=== PATIENT | male | born 1935 | race Caucasian/White ===

== ENCOUNTER → 2017-01-15 | Outpatient (CLI) | payer MEDICARE | END | disposition home or self-care (01) | LOC: PETCFH 09:27 | PROVIDERS: ATTEND Specialist | DX: C79.51 Secondary malignant neoplasm of bone (principal); C61 Malignant neoplasm of prostate | CPT/HCPCS: 78306; A9503 ==

== ENCOUNTER → 2017-05-07 | Outpatient (CLI) | payer MEDICARE | END | disposition home or self-care (01) | LOC: PETCFH 08:08 | PROVIDERS: ATTEND Specialist | DX: C61 Malignant neoplasm of prostate (principal) | CPT/HCPCS: 78306; A9503 ==

== ENCOUNTER → 2017-05-07 | Outpatient (CLI) | payer MEDICARE | END | disposition home or self-care (01) | LOC: CFH 08:10 | PROVIDERS: ATTEND Specialist | DX: C79.51 Secondary malignant neoplasm of bone (principal); C61 Malignant neoplasm of prostate; M25.78 Osteophyte, vertebrae; M48.061 Spinal stenosis, lumbar region without neurogenic claudication | CPT/HCPCS: 72158 ==

== ENCOUNTER 2018-03-30 06:09 | Inpatient (IN) | payer MEDICARE ==
[~2018-03-30] VITALS: Ht 175.3 cm; Wt 79.5 kg
[2018-03-30] VITALS (9 sets, daily range): BP systolic 113–156; BP diastolic 63–79
[2018-03-30 06:57] LABS: BASOPHILS # (AUTO) 0.01 x10^3/uL (0-0.1); BASOPHILS % (AUTO) 0 % (0-1); EOSINOPHILS # (AUTO) 0.11 x10^3/uL (0-0.4); EOSINOPHILS % (AUTO) 1 % (1-7); LYMPHOCYTES # (AUTO) 1.97 x10^3/uL (1-3.4); LYMPHOCYTES % (AUTO) 17 % (22-44); MD NO; MEAN CORPUSCULAR HEMOGLOBIN 32.9 pg (27.5-34.5); MONOCYTES # (AUTO) 1.19 x10^3/uL (0.2-0.8); MONOCYTES % (AUTO) 10 % (2-9); NEUTROPHILS # (AUTO) 8.45 x10^3/uL (1.8-6.8); NEUTROPHILS % (AUTO) 72 % (42-75); PLATELET COUNT 170 x10^3/uL (130-400); RED BLOOD COUNT 4.52 x10^6/uL (4.38-5.82); RED CELL DISTRIBUTION WIDTH 13.6 % (9.4-14.8)
[2018-03-30 07:06] LABS: INTERNATIONAL NORMALIZED RATIO 1.07 (0.93-1.1); PROTHROMBIN TIME 11.1 Seconds (9.6-11.5)
[2018-03-30 07:08] LABS: ALANINE AMINOTRANSFERASE 24 U/L (12-78); ALBUMIN 3.5 g/dL (3.4-5.0); ANION GAP 8 mmol/L (5-15); CALCIUM 8.9 mg/dL (8.5-10.1); CHLORIDE 106 mmol/L (98-107); CREATININE 1.02 mg/dL (0.7-1.3)
[2018-03-30 07:10] LABS: ALKALINE PHOSPHATASE 246 U/L (45-117); BILIRUBIN,TOTAL 0.7 mg/dL (0.2-1.0); TOTAL PROTEIN 6.8 g/dL (6.4-8.2)
[2018-03-30 07:12] LABS: TROPONIN I < 0.015 ng/mL (0.000-0.045)
[2018-03-30] MEDS ORDERED: ATOR-2 PO (07:24)
[2018-03-30] MEDS ORDERED: CLOP75TA PO (07:24)
[2018-03-30] MEDS ORDERED: METO-99 PO (07:24)
[2018-03-30] MEDS ORDERED: DABI75CA3 PO (07:24)
[2018-03-30] MEDS ORDERED: AMLO10TA6 PO (07:24)
[2018-03-30] MEDS ORDERED: LOSA100T7 PO (07:24)
[2018-03-30] MEDS ORDERED: PINK LADY ENEMA 490 ML BOTTLE PR ONE (08:00)
[2018-03-30] MEDS ORDERED: SODIUM CHLORIDE 0.9%, 500ML IVBOLUS ONE (08:00)
[2018-03-30] MEDS ORDERED: DICYCLOMINE 20 MG TABLET ONE (08:22)
[2018-03-30] MEDS ORDERED: DICYCLOMINE 20 MG TABLET PO ONE (09:00)
[2018-03-30] MEDS ORDERED: HYDROcodone/APAP 5/325 TABLET PO PRN (09:30)
[2018-03-30] MEDS ORDERED: DOCUSATE 100 MG CAPSULE PO PRN (09:30)
[2018-03-30] MEDS ORDERED: MORPHINE SULFATE 4 MG/ML, 1ML IVPush PRN (09:30)
[2018-03-30] MEDS: ONDANSETRON 2MG/ML, 2ML IVPush PRN ×2 (09:40→15:58)
[2018-03-30] MEDS ORDERED: LACTULOSE 10 GM/15 ML UDC PO ONE (10:00)
[2018-03-30] MEDS ORDERED: NS + 20MEQ KCL 1,000 ML IV SCH (11:00)
[2018-03-30] MEDS: POLYETHYLENE GLYCOL 17 GM PACKET PO PRN (11:07)
[2018-03-30] MEDS: GABAPENTIN 100 MG CAPSULE PO SCH ×3 (11:07→20:24)
[2018-03-30 15:46] LABS: MICROSCOPIC NOT IND
[2018-03-30 15:48] LABS: CULTURE INDICATED? NO
[2018-03-30] MEDS: ACETAMINOPHEN 325 MG TABLET PO PRN ×2 (15:58→23:15)
[2018-03-30] MEDS: FAMOTIDINE 20 MG TABLET PO SCH (20:25)
[2018-03-30] MEDS: DABIGATRAN 75 MG CAPSULE PO SCH ×3 (20:26→20:33)
[2018-03-30] MEDS: METOPROLOL TARTRATE 100 MG TABLET PO SCH ×2 (20:26→20:41)
[2018-03-30] MEDS ORDERED: RIVA20TA PO (20:33)
[2018-03-30] MEDS ORDERED: AMLODIPINE 10 MG TAB PO SCH (21:00)
[2018-03-30] MEDS ORDERED: ATORVASTATIN 80 MG TABLET PO SCH (21:00)
[2018-03-30] MEDS ORDERED: METO25TA35 PO (22:01)
[2018-03-30] MEDS: METOPROLOL TARTRATE 50 MG TABLET PO SCH (23:15)
[2018-03-31 04:26] VITALS: BP 132/65
[2018-03-31 05:40] LABS: ANION GAP 7 mmol/L (5-15); CALCIUM 8.3 mg/dL (8.5-10.1); CHLORIDE 108 mmol/L (98-107); CREATININE 0.84 mg/dL (0.7-1.3)
[2018-03-31 07:59] VITALS: BP 115/67
[2018-03-31] MEDS: METOPROLOL TARTRATE 50 MG TABLET PO SCH (08:00)
[2018-03-31] MEDS: FAMOTIDINE 20 MG TABLET PO SCH (08:00)
[2018-03-31] MEDS: GABAPENTIN 100 MG CAPSULE PO SCH (08:00)
[2018-03-31] MEDS: POLYETHYLENE GLYCOL 17 GM PACKET PO PRN (08:01)
[2018-03-31] MEDS: ACETAMINOPHEN 325 MG TABLET PO PRN (08:01)
[2018-03-31] MEDS: DABIGATRAN 75 MG CAPSULE PO SCH (08:02)
[2018-03-31] MEDS ORDERED: LOSARTAN 50MG TABLET PO SCH (09:00)
[2018-03-31] MEDS ORDERED: SENNA/DOCUSATE TABLET PO SCH (09:00)
[2018-03-31] MEDS ORDERED: METOPROLOL TARTRATE 50 MG TABLET PO SCH (09:00)
[2018-03-31] MEDS ORDERED: CLOPIDOGREL 75 MG TABLET PO SCH (09:00)
[2018-03-31] MEDS ORDERED: GABA-826 PO (09:27)
== END 2018-03-31 11:17 | disposition home or self-care (01) | DRG 394 ==
LOC: ED 07:46 → EDIP 08:10 → SUATTDRO 08:51 → 4EST 09:17
PROVIDERS: ADMIT Family Medicine; ATTEND Family Medicine
DX: K59.39 Other megacolon (principal); D68.69 Other thrombophilia; C79.51 Secondary malignant neoplasm of bone; G90.8 Other disorders of autonomic nervous system; E86.0 Dehydration; I07.1 Rheumatic tricuspid insufficiency; I25.2 Old myocardial infarction; I35.8 Other nonrheumatic aortic valve disorders; I48.91 Unspecified atrial fibrillation; K59.00 Constipation, unspecified; Z66 Do not resuscitate; Z79.01 Long term (current) use of anticoagulants; Z80.1 Family history of malignant neoplasm of trachea, bronchus and lung; Z82.3 Family history of stroke; C61 Malignant neoplasm of prostate; Z87.891 Personal history of nicotine dependence; Z95.5 Presence of coronary angioplasty implant and graft
CPT/HCPCS: 36415; 74022; 80048; 80053; 81003; 83690; 83735; 84484; 85025; 85610; 85730; 93005; 93306; 96360; G0378; J2405; J3480; J7040

== ENCOUNTER 2019-12-29 04:55 | Emergency (ER) | payer MEDICARE ==
[~2019-12-29] VITALS: Ht 175.3 cm; Wt 72.9 kg
[~2019-12-29 04:55] MED LIST: AMLO10TA8 PO; ATOR-2 PO; CLOP75TA PO; DABI75CA3 PO; GABA-826 PO; LOSA100T14 PO; METO-99 PO; METO25TA35 PO; RIVA20TA PO
[2019-12-29] MEDS ORDERED: ASPIRIN 81 MG TABLET CHEW PO ONE (05:30)
[2019-12-29] MEDS ORDERED: SODIUM CHLORIDE FLUSH 10ML SYR IVF ONE (05:30)
[2019-12-29 05:38] LABS: BASOPHILS # (AUTO) 0.02 x10^3/uL (0-0.1); BASOPHILS % (AUTO) 0 % (0-1); EOSINOPHILS # (AUTO) 0.19 x10^3/uL (0-0.4); EOSINOPHILS % (AUTO) 4 % (1-7); LYMPHOCYTES # (AUTO) 0.69 x10^3/uL (1-3.4); LYMPHOCYTES % (AUTO) 15 % (22-44); MD NO; MEAN CORPUSCULAR HEMOGLOBIN 32.2 pg (27.5-34.5); MEAN CORPUSCULAR HGB CONC 32.3 g/dL (33.2-36.2); MEAN CORPUSCULAR VOLUME 99.8 fL (81-97); MEAN PLATELET VOLUME 7.8 fL (7.4-10.4); MONOCYTES # (AUTO) 0.57 x10^3/uL (0.2-0.8); MONOCYTES % (AUTO) 12 % (2-9); NEUTROPHILS # (AUTO) 3.13 x10^3/uL (1.8-6.8); NEUTROPHILS % (AUTO) 68 % (42-75); PLATELET COUNT 197 x10^3/uL (130-400); RED BLOOD COUNT 3.49 x10^6/uL (4.38-5.82); RED CELL DISTRIBUTION WIDTH 17.2 % (9.4-14.8)
--- NOTE | 2019-12-29 05:46 | NUR ---
PT BIB FAMILY C/O LEFT SIDED CHEST PAIN SINCE SUNDAY, FOLLOWING A BLOOD TRANSFUSION. PT IS ILL APPEARING ON EXAM, BUT HAS NO COMPLAINTS OTHER THAN GENERALIZED PAIN. HX OF PROSTATE CANCER WITH RADIATION. FULL STACK DEVELOPER OBSERVED SHORT RUN OF VTACH ON THE MONITOR, MADE AWARE. WILL CONTINUE TO MONITOR.
[2019-12-29 05:47] LABS: ALBUMIN 2.5 g/dL (3.4-5.0); ANION GAP 8 mmol/L (5-15); CALCIUM 8.4 mg/dL (8.5-10.1); CHLORIDE 109 mmol/L (98-107); CREATININE 0.63 mg/dL (0.7-1.3)
[2019-12-29 05:50] LABS: TROPONIN I < 0.015 ng/mL (0.000-0.045)
[2019-12-29] MEDS ORDERED: MAGNESIUM SULFATE 1 GM in SODIUM CHLORIDE 0.9% 50 ML IV ONE (06:00)
[2019-12-29 06:02] VITALS: BP 143/63
== END 2019-12-29 06:53 | disposition home or self-care (01) ==
LOC: ED 05:47
DX: R07.2 Precordial pain (principal); I10 Essential (primary) hypertension; E78.00 Pure hypercholesterolemia, unspecified; E78.5 Hyperlipidemia, unspecified; I25.2 Old myocardial infarction; Z85.46 Personal history of malignant neoplasm of prostate
CPT/HCPCS: 36415; 71045; 80048; 82040; 83735; 84484; 85025; 93005; 96365; 99285; J3475

== ENCOUNTER 2020-01-15 02:32 | Emergency (ER) | payer MEDICARE ==
[~2020-01-15] VITALS: Ht 175.3 cm; Wt 60.0 kg
[2020-01-15] MEDS ORDERED: ONDANSETRON 2MG/ML, 2ML IVPush ONE (03:00)
--- NOTE | 2020-01-15 03:02 | NUR ---
Pt presents to ed c/o n/vxmultiple days. States n/v is new, but is being treated for prostate ca w/ mets. 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 at bedside for assessment.
[2020-01-15] MEDS ORDERED: ONDANSETRON 2MG/ML, 2ML ONE (03:07)
[2020-01-15] MEDS ORDERED: MORPHINE SULFATE 4 MG/ML, 1ML ONE ×2 (03:07→04:31)
[2020-01-15] MEDS: MORPHINE SULFATE 4 MG/ML, 1ML IVPush PRN ×2 (03:22→04:34)
[2020-01-15] MEDS ORDERED: SODIUM CHLORIDE 0.9% 1,000ML IVBOLUS ONE (03:30)
[2020-01-15 03:32] LABS: BASOPHILS # (AUTO) 0.02 x10^3/uL (0-0.1); BASOPHILS % (AUTO) 0 % (0-1); EOSINOPHILS # (AUTO) 0.06 x10^3/uL (0-0.4); EOSINOPHILS % (AUTO) 1 % (1-7); LYMPHOCYTES # (AUTO) 0.73 x10^3/uL (1-3.4); LYMPHOCYTES % (AUTO) 11 % (22-44); MD NO; MEAN CORPUSCULAR HEMOGLOBIN 31.9 pg (27.5-34.5); MEAN CORPUSCULAR HGB CONC 32.1 g/dL (33.2-36.2); MEAN CORPUSCULAR VOLUME 99.3 fL (81-97); MEAN PLATELET VOLUME 7.5 fL (7.4-10.4); MONOCYTES % (AUTO) 9 % (2-9); NEUTROPHILS # (AUTO) 5.23 x10^3/uL (1.8-6.8); NEUTROPHILS % (AUTO) 79 % (42-75); PLATELET COUNT 175 x10^3/uL (130-400); RED BLOOD COUNT 3.73 x10^6/uL (4.38-5.82); RED CELL DISTRIBUTION WIDTH 16.3 % (9.4-14.8)
[2020-01-15 03:44] LABS: ALANINE AMINOTRANSFERASE 16 U/L (12-78); ALBUMIN 3.2 g/dL (3.4-5.0); ANION GAP 8 mmol/L (5-15); CALCIUM 9.2 mg/dL (8.5-10.1); CHLORIDE 103 mmol/L (98-107); CREATININE 0.64 mg/dL (0.7-1.3)
[2020-01-15 03:46] LABS: ALKALINE PHOSPHATASE 412 U/L (45-117); BILIRUBIN,TOTAL 0.5 mg/dL (0.2-1.0); TOTAL PROTEIN 6.2 g/dL (6.4-8.2)
[2020-01-15] MEDS ORDERED: OMNIPAQUE 350 MG/ML, 100ML BOTTLE ONE (04:21)
[2020-01-15 04:34] VITALS: BP 151/76
--- NOTE | 2020-01-15 05:08 | NUR ---
All results back. Pt up for recheck.
== END 2020-01-15 05:39 | disposition home or self-care (01) ==
LOC: ED 05:26
DX: K59.00 Constipation, unspecified (principal); R10.84 Generalized abdominal pain; R53.1 Weakness; R11.2 Nausea with vomiting, unspecified; R07.89 Other chest pain; I10 Essential (primary) hypertension; I48.91 Unspecified atrial fibrillation; I25.2 Old myocardial infarction; E78.00 Pure hypercholesterolemia, unspecified; Z85.46 Personal history of malignant neoplasm of prostate; Z87.891 Personal history of nicotine dependence
CPT/HCPCS: 36415; 71045; 74177; 80053; 83605; 83690; 85025; 96361; 96374; 96375; 96376; 99285; J2270; J2405; J7030; Q9967